=== PATIENT | female | born 1995 ===

== ENCOUNTER 2017-05-15 13:21 | Emergency (ER) | payer OTHER ==
[2017-05-15 13:32] VITALS: BP 117/64; PULSE 79; RESP 16; TEMP 99.3; O2SAT 99
--- NOTE | 2017-05-15 13:58 | ED PDOC ---
HPI: Allergic Reaction Time Seen by Provider: 05/15/17 13:40 Chief Complaint (Nursing): Allergic Reaction Chief Complaint (Provider): sinus swelling. 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 denies fever but admits to body aches, pain in sinus area./ Past Medical History Reviewed: Historical Data, Nursing Documentation, Vital Signs Vital Signs: Last Vital Signs Temp 99.3 F 05/15/17 13:30 Pulse 79 05/15/17 13:30 Resp 16 05/15/17 13:30 BP 117/64 05/15/17 13:30 Pulse Ox 99 05/15/17 13:30 - Medical History PMH: No Chronic Diseases - Family History Family History: States: No Known Family Hx - Home Medications Home Medications: Ambulatory Orders Medication Instructions Recorded Amoxicillin [Amoxil 500 mg Cap] 500 mg PO BID #9 cap 05/15/17 predniSONE [predniSONE Tab] 20 mg PO BID #8 tab 05/15/17 - Allergies Allergies/Adverse Reactions: Allergies Allergy/AdvReac Type Severity Reaction Status Date / Time No Known Allergies Allergy Verified 05/15/17 13:30 Review of Systems ROS Statement: Except As Marked, All Systems Reviewed And Found Negative Constitutional: Negative for: Fever, Malaise Gastrointestinal: Negative for: Nausea, Vomiting, Abdominal Pain Physical Exam - Reviewed Nursing Documentation Reviewed: Yes Vital Signs Reviewed: Yes - Physical Exam Appears: Positive for: Non-toxic, No Acute Distress, Uncomfortable Skin: Positive for: Normal Color, Warm, DRY Eye Exam: Positive for: Normal appearance, EOMI, PERRL ENT: Positive for: Sinus Pain/Drainage (ethmoid sinus pain). Negative for: Hearing Is, Pharyngeal Erythema, Tonsillar Exudate, Tonsillar Swelling Neck: Positive for: Normal, Painless ROM Cardiovascular/Chest: Positive for: Regular Rate, Rhythm Respiratory: Positive for: CNT, Normal Breath Sounds Gastrointestinal/Abdominal: Positive for: Normal Exam, Bowel Sounds, Soft Extremity: Positive for: Normal ROM Neurologic/Psych: Positive for: Alert, Oriented - ECG O2 Sat by Pulse Oximetry: 99 Disposition - Clinical Impression Clinical Impression: Sinusitis - Patient ED Disposition Is Patient to be Admitted: No Counseled Patient/Family Regarding: Diagnosis, Need For Followup, Rx Given - Disposition Disposition: Routine/Home Disposition Time: 14:06 Condition: STABLE Prescriptions: Amoxicillin [Amoxil 500 mg Cap] 500 mg PO BID #9 cap predniSONE [predniSONE Tab] 20 mg PO BID #8 tab Print Language: BURKIN[place] Medical Decision Making Medical Decision Making: Pt will be d/c with Rx for amoxicillin and given prednisone in ER and d.c with prednisone for home with f.u with ENT.
== END 2017-05-15 16:21 | disposition home or self-care (01) ==
LOC: H.ER 13:21
DX: J32.9 Chronic sinusitis, unspecified (principal)

== ENCOUNTER 2018-02-09 00:53 | Emergency (ER) | payer SELFPAY ==
[2018-02-09 00:53] VITALS: BMI 30.7
[2018-02-09 01:14] VITALS: RESP 16
[2018-02-09 02:01] LABS: BASO % 0.4 % (0.0-2.0); EOS # 0.2 K/uL (0.0-0.7); EOS % 1.9 % (0.0-4.0); LYMPH # 2.6 K/uL (1.0-4.3); LYMPH % 25.1 % (20.0-40.0); MEAN CELL VOLUME 81.8 fl (81.0-99.0); MEAN CORPUSCULAR HEMOGLOBIN 26.3 pg (27.0-31.0); MEAN CORPUSCULAR HGB CONC 32.1 g/dL (33.0-37.0); MEAN PLATELET VOLUME 10.7 fl (7.2-11.7); MONO # 1.1 K/uL (0.0-0.8); MONO % 10.9 % (0.0-10.0); NEUT # 6.3 K/uL (1.8-7.0); NEUT % 61.7 % (50.0-75.0); RBC 4.21 Mil/uL (3.80-5.20); RED CELL DISTRIBUTION WIDTH 15.2 % (11.5-14.5); WHITE BLOOD COUNT 10.3 K/uL (4.8-10.8)
[2018-02-09 02:09] LABS: ALB/GLOB RATIO 1.1 (1.0-2.1); ALT/SGPT 41 U/L (9-52); AST/SGOT 22 U/L (14-36); BLOOD UREA NITROGEN 7 mg/dl (7-17); CALCIUM 9.2 mg/dL (8.4-10.2); GFR AFRICAN-AMERICAN > 60; GFR NON-AFRICAN AMERICAN > 60
--- NOTE | 2018-02-09 03:15 | ED PDOC ---
HPI: Female Pain Chief Complaint (Provider): Vaginal bleeding History Per: Patient History/Exam Limitations: no limitations Onset/Duration Of Symptoms: Hrs Current Symptoms Are (Timing): Better Additional Complaint(s): 23 y/o female with h/o seasonal allergies, at 9 weeks of GA based on LMP : 12/07/17 presents to ED complaining of vaginal spotting since one hour ago, associated with intermittent episodes of vaginal pain. Reports a white vaginal discharge. Denies vaginal itchy sensation, urinary symptoms, or pelvic pain. Taking just vitamins at this time. PMD: at [facility], has first visit scheduled for Allergies : NKDA Surgical hx:Kidney stone removal in <Raquel Nash - Last Filed: 02/09/18 05:47> <Josefina Carter - Last Filed: 02/12/18 06:30> Time Seen by Provider: 02/09/18 01:33 Chief Complaint (Nursing): Female Genitourinary Supervising Attending Note - Supervising Attending Note The Documented history was done by the: Physician Lofter The documented physical exam was done by the: Physician Lofter The documented procedures were done by the: Physician Lofter - Attestation: I have personally seen and examined this patient.: Yes I have fully participated in the care of the patient.: Yes I have reviewed all pertinent clinical information, including history, physical exam and plan: Yes <Josefina Carter Y - Last Filed: 02/12/18 06:30> Past Medical History Vital Signs: Last Vital Signs Temp 97.6 F 02/09/18 01:11 Pulse 78 02/09/18 01:11 Resp 16 02/09/18 01:11 BP 138/93 H 02/09/18 01:11 Pulse Ox 100 02/09/18 01:11 - Medical History PMH: No Chronic Diseases - Surgical History Surgical History: No Surg Hx - Family History Family History: States: Unknown Family Hx - Living Arrangements Living Arrangements: With Family - Social History Current smoker - smoking cessation education provided: No Ex-Smoker (has not smoked in the last 12 months): No Alcohol: None Drugs: Denies - Immunization History Hx Tetanus Toxoid Vaccination: No Hx Influenza Vaccination: No Hx Pneumococcal Vaccination: No <Raquel Nash - Last Filed: 02/09/18 05:47> Vital Signs: Last Vital Signs Temp 97.6 F 02/09/18 01:11 Pulse 78 02/09/18 01:11 Resp 16 02/09/18 01:11 BP 138/93 H 02/09/18 01:11 Pulse Ox 100 02/09/18 03:21 <Josefina Carter - Last Filed: 02/12/18 06:30> - Home Medications Home Medications: Ambulatory Orders Medication Instructions Recorded Ciprofloxacin [Cipro] 500 mg PO BID #10 tab 11/09/17 Ibuprofen [Motrin Tab] 600 mg PO Q6 #30 tab 11/09/17 Tamsulosin [Flomax] 0.4 mg PO DAILY #14 cap 11/09/17 Nitrofurantoin Macrocrystals 100 mg PO BID #14 cap 02/09/18 [Macrobid] - Allergies Allergies/Adverse Reactions: Allergies Allergy/AdvReac Type Severity Reaction Status Date / Time No Known Allergies Allergy Verified 05/15/17 13:30 Review of Systems ROS Statement: Except As Marked, All Systems Reviewed And Found Negative (as per HPI) <Raquel Nash - Last Filed: 02/09/18 05:47> Physical Exam - Reviewed Nursing Documentation Reviewed: Yes Vital Signs Reviewed: Yes - Physical Exam Appears: Positive for: Non-toxic, No Acute Distress Head Exam: Positive for: ATRAUMATIC, NORMAL INSPECTION, NORMOCEPHALIC Skin: Positive for: Normal Color, Warm, Dry Eye Exam: Positive for: Normal appearance. Negative for: Conjunctival injection , Scleral icterus ENT: Positive for: Normal ENT Inspection Cardiovascular/Chest: Positive for: Regular Rate, Rhythm. Negative for: Chest Non Tender, Edema, Bradycardia, Tachycardia Respiratory: Positive for: Normal Breath Sounds. Negative for: Decreased Breath Sounds, Accessory Muscle Use, Crackles, Rales, Rhonchi, Stridor, Wheezing , Respiratory Distress Gastrointestinal/Abdominal: Positive for: Bowel Sounds (normal and present), Soft. Negative for: Tenderness, Distended, Guarding, Rebound Pelvic Exam: Positive for: External Exam Normal, Bimanual Exam Normal, Discharge (scant white, thick vaginal discharge in vaginal vault). Negative for : No Cerv. Motion Tender, No Masses, Active Bleeding Back: Positive for: Normal Inspection. Negative for: L CVA Tenderness, R CVA Tenderness Neurologic/Psych: Positive for: Alert, Oriented <Raquel Nash - Last Filed: 02/09/18 05:47> - Laboratory Results Result Diagrams: 02/09/18 01:40 02/09/18 01:40 - ECG O2 Sat by Pulse Oximetry: 100 <Raquel Nash - Last Filed: 02/09/18 05:47> - Laboratory Results Result Diagrams: 02/09/18 01:40 02/09/18 01:40 <Josefina Carter - Last Filed: 02/12/18 06:30> Medical Decision Making Medical Decision Making: Vaginal bleeding in -type and screen -CBC, CMP -Beta-HCG quant -OB TVUS case discussed with Dr. Carter re-evaluation Re-evaluation -Beta HCG positive for -CBC remarkable for hgb 11. Patient is asymptomatic for anemia. Possible 2/2 . Taking vitamins. -UA positive leukocyte est, elevated RBC, and elevated WBC -OB TVUS reported as : impression in preliminary report: A single live IUP is seen, at 8 weeks 1 day gestational age (based on the CRL). heartbeat is recorded. No adnexal pathology is seen. No free pelvic fluid is noted. Pending official report -patient stable to be discharged home with recommended f/u with CATALYTIC CASE OPERATOR/OB doctor on February 12/2018. Patient has appointment. -will treat UTI in with Macrobid BID x 7 days -can apply vaginal miconazole cream daily at bedtime x 7 days -ER precautions given case discussed with Dr. Carter <Raquel Nash - Last Filed: 02/09/18 05:47> Medical Decision Makin23 year old female 9 weeks into presents with mild vaginal bleeding and cramping x1 hour [employer]. Upon physical examination, abdomen soft and non-tender. imp: threatened Scribe Attestation: Documented by Dania Meier acting as a scribe for Josefina Carter MD. Scribe Attestation: All medical record entries made by the Scribe were at my direction and personally dictated by me. I have reviewed the chart and agree that the record accurately reflects my personal performance of the history, physical exam, medical decision making, and the department course for this patient. I have also personally directed, reviewed, and agree with the discharge instructions and disposition. <Josefina Carter - Last Filed: 02/12/18 06:30> Disposition - Patient ED Disposition Is Patient to be Admitted: No Discussed With DrJulissa: Josefina Carter - Disposition Disposition: Routine/Home Disposition Time: 05:15 <Raquel Nash - Last Filed: 02/09/18 05:47> <Josefina Carter - Last Filed: 02/12/18 06:30> - Clinical Impression Clinical Impression: Threatened - Disposition Condition: IMPROVED Additional Instructions: follow up with your real estate associate in 2 days return to the ED with any worsening or concerning symptoms Prescriptions: Nitrofurantoin Macrocrystals [Macrobid] 100 mg PO BID #14 cap Instructions: Threatened Miscarriage, Urinary Tract Infection, Adult (DC) Forms: [facility] (Faroese) Print Language: KOREAN
[2018-02-09 04:08] LABS: SQUAMOUS EPITHIAL 11 /hpf (0-5); URINE BACTERIA RARE (<OCC); URINE BILIRUBIN NEGATIVE (NEGATIVE); URINE BLOOD LARGE (NEGATIVE); URINE CLARITY CLOUDY (Clear); URINE COLOR YELLOW (YELLOW); URINE GLUCOSE (UA) NEG (Normal); URINE LEUKOCYTE ESTERASE LARGE Leu/uL (Negative); URINE PROTEIN 30 mg/dL (NEGATIVE); URINE UROBILINOGEN 0.2-1.0 mg/dL (0.2-1.0)
[2018-02-09 05:27] VITALS: BP 126/52; PULSE 72; TEMP 98
[2018-02-09 05:46] VITALS: O2SAT 100
--- NOTE | 2018-02-09 10:05 | US ---
HISTORY: ; patient reports spontaneous vaginal bleeding since 10 p.m. 02/08/2018. The patient's last menstrual period is reported 12/07/2017 suggesting gestation of 9 weeks 1 day. COMPARISON: None available. TECHNIQUE: Transvaginal ultrasonography of is not performed with longitudinal and transverse projections submitted for interpretation. FINDINGS: UTERUS: Measures 8.1 x 6.7 x 5.3 cm. Uterus is anteverted with no suspicious myometrial lesion appreciated. ENDOMETRIUM: A gestational sacs identified in the endometrial cavity with a pole yolk sac and and membrane captured. cardiac activity is recorded at 160 beats per minute. Mean sac diameter is 3.4 cm corresponding to 8 weeks 3D gestational estimate with mean crown-rump length measurement of 1.8 cm corresponding to 8 weeks 2 days. Yolk sac measures 0.6 cm. Decidual reaction appears unremarkable without definitive hemorrhage seen related at this time. CERVIX: No cervical mass is identified with the cervix measuring 3.7 cm. RIGHT OVARY: Measures 3.0 x 2.5 x 2.7 cm. No solid mass. Normal flow. LEFT OVARY: Measures 2.1 x 1.9 x 1.5 cm. No solid mass. Normal flow. FREE FLUID: No significant free fluid noted. OTHER FINDINGS: None. IMPRESSION: A single viable intrauterine gestation is identified with an average ultrasonic age of 8 weeks 2 days which is concordant with gestational estimate based on LMP as per above. Unremarkable decidual reaction with no significant hemorrhage appreciable. No suspicious adnexal findings. No defined ectopic gestation. Further clinical correlation is recommended.
== END 2018-02-09 05:27 | disposition home or self-care (01) ==
LOC: H.ER 00:53
DX: O20.0 Threatened abortion (principal)

== ENCOUNTER 2018-05-27 17:40 | Emergency (ER) | payer MEDICAID ==
[2018-05-28 00:13] VITALS: BP 116/65; PULSE 86; RESP 18; TEMP 98.1; O2SAT 98
== END 2018-05-27 19:45 | disposition home or self-care (01) ==
LOC: H.EROB2 17:40
DX: O26.92 Pregnancy related conditions, unspecified, second trimester (principal); N89.8 Other specified noninflammatory disorders of vagina; L29.9 Pruritus, unspecified; Z3A.24 24 weeks gestation of pregnancy

== ENCOUNTER 2018-09-05 22:34 | Emergency (ER) | payer MEDICAID ==
[2018-09-06 04:10] VITALS: BP 123/70; PULSE 81; TEMP 98.4; O2SAT 96
--- NOTE | 2018-09-06 08:14 | OBHP ---
Datetime: 09/05/2018 23:44 IP Adm Impression: Term, intrauterine ; No Active Labor; Intact Membranes IP Admit Plan: Discharge home Admit Comment, IP Provider: [id number] at 38+w c/o CTX 1-2h ago; no SROM; no VB; +FM [facility]had been to [facility] earlier today at 1pm; told 2cm care [facility] chart rev;d POBGYNH: g1 ; no STD PMH: denies PSH: denies NKA PSoH; denies smoking ETOH drugs A; Iup at 38w latent phase of labor PLAN: D/C home; labor instructions; pree-clampsia warnign Pelvic Type - PN: Adequate Extremities - PN: Normal Abdomen - PN: Normal Lungs - PN: Normal Heart - PN: Normal HEENT - PN: Normal General - PN: Normal Presentation-Admit: Vertex IP Fetus A Comments: Sono ceph FHR - Baseline A Provider: 130 Membranes, Provider: Intact Pool Provider: Negative IP Hx Assessment: The History has been Reviewed and is Current EGA AdmitDate IP: 39.0 Vital Signs Provider: Reviewed IP Chief Complaint: Uterine contractions NICHD Variability Prov Fetus A: Moderate 6-25bpm NICHD Accel Fetus A IP Provider: 15X15 FHR Category Provider Fetus A: Category I NICHD Decel Fetus A IP Provider: None Dilatation, Provider: 2 Effacement, Provider: long Station, Provider: high Datetime: 05/27/2018 18:00 Back - PN: Normal Breast - PN: Not Done Thyroid - PN: Normal Neurologic - PN: Normal Gestation - Est Wks by US: 24.0 Genitourinary Exam: Not Done DTRs - PN: Normal
--- NOTE | 2018-09-06 08:14 | OBDCSUM ---
Datetime: 09/05/2018 23:46 Discharged to, Provider: Home Follow up at, Provider: [facility] Disch Instr Activity: Normal activity Disch Instr Diet: Regular Discharge Instructions, Provider: Routine instructions given Discharge Diagnosis, Provider: False Labor - Undelivered Discharge Time: 09/05/2018 23:48 Follow up in weeks, Provider: Sep 10, 2018 @ 1330 as scheduled. Disch Referrals: None Contraception discussed, Prov: Yes
== END 2018-09-05 23:59 | disposition home or self-care (01) ==
LOC: H.EROB2 22:34
DX: O26.93 Pregnancy related conditions, unspecified, third trimester (principal); R10.2 Pelvic and perineal pain; Z3A.38 38 weeks gestation of pregnancy; O47.1 False labor at or after 37 completed weeks of gestation

== ENCOUNTER 2018-09-10 06:56 | Inpatient (IN) | payer MEDICAID ==
[2018-09-10 07:30] VITALS: BMI 32.0
[2018-09-10] MEDS ORDERED: Lactated Ringer's 1,000 ML IV ONE (08:01)
[2018-09-10] MEDS ORDERED: Oxytocin 30 UNIT 30 UNITS/500 ML BAG IV ONE ×2 (08:06→16:33)
[2018-09-10] MEDS ORDERED: OXYTOCIN/0.9 % NS 20 UNIT/1,000 ML BAG IV SCH (08:15)
[2018-09-10] MEDS: Lactated Ringer's 1,000 ML IV SCH ×2 (08:15→16:30)
[2018-09-10 08:48] LABS: BASO % 0.5 % (0.0-2.0); EOS % 0.4 % (0.0-4.0); HEMOGLOBIN 10.6 g/dL (12.0-16.0); LYMPH # 2.4 K/uL (1.0-4.3); LYMPH % 23.2 % (20.0-40.0); MEAN CELL VOLUME 81.3 fl (81.0-99.0); MEAN CORPUSCULAR HEMOGLOBIN 26.4 pg (27.0-31.0); MEAN CORPUSCULAR HGB CONC 32.5 g/dL (33.0-37.0); MEAN PLATELET VOLUME 11.8 fl (7.2-11.7); MONO # 0.6 K/uL (0.0-0.8); MONO % 6.2 % (0.0-10.0); NEUT # 7.2 K/uL (1.8-7.0); NEUT % 69.7 % (50.0-75.0); NRBC % 0.1 % (0.0-0.0); RBC 4.02 Mil/uL (3.80-5.20); RED CELL DISTRIBUTION WIDTH 17.8 % (11.5-14.5); WHITE BLOOD COUNT 10.3 K/uL (4.8-10.8)
[2018-09-10] MEDS ORDERED: Lidocaine 1% Inj (20ml) ONE ×2 (10:31→21:40)
[2018-09-10] MEDS ORDERED: Nalbuphine HCL 10 mg/ml Ampule IVP PRN (11:20)
[2018-09-10] MEDS ORDERED: Nalbuphine HCL 10 mg/ml Ampule ONE (11:26)
[2018-09-10] MEDS ORDERED: Fentanyl/Bupivacaine HCl 250 ML EPI ONE (12:52)
--- NOTE | 2018-09-10 16:35 | OBPN ---
Datetime: 09/10/2018 16:31 IP Procedures: Sterile Vag Exam IP Progress Plan: Augmentation Contraction Comments Provider: q2-6min FHR - Baseline A Provider: 120s IP Progress Note Comment: Patient resting comfortably status post epidural. Patient without complain ts. Plan to start Pitocin augmentation due to lack of progress. heart tracing category 1 Discussed plan with patient all patient questions answered. Vital Signs Provider: Reviewed; Within Normal Limits NICHD Accel Fetus A IP Provider: 15X15 FHR Category Provider Fetus A: Category I NICHD Variability Prov Fetus A: Moderate 6-25bpm Dilatation, Provider: 5 Effacement, Provider: 100 Station, Provider: 0 NICHD Decel Fetus A IP Provider: None Datetime: 09/10/2018 07:17 Pool Provider: Positive Nitrazine Provider: Positive Membranes, Provider: Ruptured Amniotic Fluid Color, Provider: Clear Presentation-Admit: Vertex Datetime: 09/05/2018 23:44 IP Fetus A Comments: Sono ceph Datetime: 05/27/2018 18:00 Gestation - Est Wks by US: 24.0
[2018-09-10] MEDS ORDERED: Oxycodone/Acetaminophen 5/325 mg Tab PO PRN (21:47)
[2018-09-10] MEDS ORDERED: Benzocaine/Menthol SPRAY TOP PRN (21:47)
[2018-09-11] MEDS ORDERED: Oxycodone/Acetaminophen 5/325 mg Tab PO PRN (00:54)
[2018-09-11] MEDS ORDERED: Benzocaine/Menthol SPRAY TOP PRN (00:54)
[2018-09-11 06:46] LABS: BASO % 0.3 % (0.0-2.0); HEMOGLOBIN 7.5 g/dL (12.0-16.0); LYMPH # 2.2 K/uL (1.0-4.3); LYMPH % 14.6 % (20.0-40.0); MEAN CELL VOLUME 80.6 fl (81.0-99.0); MEAN CORPUSCULAR HEMOGLOBIN 26.1 pg (27.0-31.0); MEAN CORPUSCULAR HGB CONC 32.4 g/dL (33.0-37.0); MEAN PLATELET VOLUME 11.3 fl (7.2-11.7); MONO # 1.1 K/uL (0.0-0.8); NEUT % 78.1 % (50.0-75.0); RBC 2.86 Mil/uL (3.80-5.20); WHITE BLOOD COUNT 15.3 K/uL (4.8-10.8)
[2018-09-11] MEDS ORDERED: Multivitamin With Minerals Tab PO SCH (09:00)
[2018-09-11] MEDS: Multivitamin With Minerals Tab PO SCH (09:23)
--- NOTE | 2018-09-11 11:13 | OBADHP ---
Datetime: 09/10/2018 16:31 FHR - Baseline A Provider: 120s Contraction Comments Provider: q2-6min Vital Signs Provider: Reviewed; Within Normal Limits NICHD Variability Prov Fetus A: Moderate 6-25bpm NICHD Accel Fetus A IP Provider: [id number] FHR Category Provider Fetus A: Category I NICHD Decel Fetus A IP Provider: None Dilatation, Provider: 5 Effacement, Provider: 100 Station, Provider: 0 Datetime: 09/10/2018 07:57 EGA AdmitDate IP: 39.4 Datetime: 09/10/2018 07:17 Admit Comment, IP Provider: 23 y/o , 39.4 wks based on LMP presents to [facility] with SROM and CTx. C Tx started 2 am this morning every 5 mins, followed by gush of fluids at 6:40 am today. Endorses good FM movement except for less movements yesterday. Scent vaginal spotting while wiping. Denies F/C/N/V /D/C or urinary complains. GBS Neg, HIV Neg, RPR NR, HbsAg Neg, Rubella immune : [place]ril, records reviewed PMHx: Denies PSHx: Renal stent 2018 Allergies: NKDA F/H Noncontributory Social Hx: Denies ETOH/smoking/drugs NST: reactive, [place] CTx Q2 mins Physical exam Gen: No acute distress Chest: RRR, S1S2 present Lungs: CTAB ABdomen: gravid, NT SSE: + pooling, No active VB, + Nitrazine SVE: 3 cm/80/-1 Ext: No pedal edema A/P: A/P: 23 y/o , 39.4 wks based on LMP with SROM and CTx. - EFM and [place] monitoring - NST reactive with + accels, No decels, Moderate variability - Cervix 3/80%/-1 - LR @ 999 ml/hr - Monitor for cervical changes Cruz Mcrae, PGY1 OB attending note. Pt seen on rounds this morning agree with ntoe MAHNDO Pelvic Type - PN: Not Done Extremities - PN: Normal Abdomen - PN: Normal Back - PN: Normal Breast - PN: Normal Lungs - PN: Normal Heart - PN: Normal Thyroid - PN: Not Done Neurologic - PN: Normal HEENT - PN: Normal General - PN: Normal Presentation-Admit: Vertex Amniotic Fluid Color, Provider: Clear Membranes, Provider: Ruptured Comments, ACOG Physical Exam: Gen: No acute distress Chest: RRR, S1S2 present Lungs: CTAB ABdomen: gravid, NT SSE: + pooling, No active VB, + Nitrazine SVE: 3 cm/80/-1 Ext: No pedal edema Pool Provider: Positive Nitrazine Provider: Positive IP Hx Assessment: The History has been Reviewed and is Current IP Chief Complaint: Suspected ruptured membranes Genitourinary Exam: Normal DTRs - PN: Not Done IP Adm Impression: Term, intrauterine IP Admit Plan: Observation/Evaluation Datetime: 09/05/2018 23:44 IP Fetus A Comments: Sono ceph Datetime: 05/27/2018 18:00 Gestation - Est Wks by US: 24.0
[2018-09-12] MEDS: Multivitamin With Minerals Tab PO SCH (08:12)
[2018-09-12 17:50] VITALS: BP 140/66; PULSE 100; RESP 20; TEMP 97.9; O2SAT 100
== END 2018-09-12 13:00 | disposition home or self-care (01) | DRG 560 ==
LOC: H.EROB2 06:56 → H.L&D 08:01 → H.OB/GYN 09-11 00:30
PROVIDERS: ADMIT Obstetrics & Gynecology Gynecology; ATTEND Obstetrics & Gynecology Gynecology
PROC: 10E0XZZ Delivery of Products of Conception, External Approach (ICD-10-PCS; principal; 2018-09-10)
PROC: 4A1HXCZ Monitoring of Products of Conception, Cardiac Rate, External Approach (ICD-10-PCS; 2018-09-10)
DX: O80 Encounter for full-term uncomplicated delivery (principal); Z37.0 Single live birth; Z3A.39 39 weeks gestation of pregnancy